=== PATIENT | female | born 2000 | race Two or more races ===

== ENCOUNTER 2024-05-11 15:29 | Outpatient (CLI) | payer OTHER | END 2024-05-11 15:30 | disposition home or self-care (01) | LOC: PRENATAL 15:29 | PROVIDERS: ATTEND Obstetrics & Gynecology Maternal & Fetal Medicine | DX: O26.849 Uterine size-date discrepancy, unspecified trimester (principal); O36.8199 Decreased fetal movements, unspecified trimester, other fetus; Z3A.32 32 weeks gestation of pregnancy ==